=== PATIENT | female | born 1990 | race Two or more races ===

== ENCOUNTER 2024-09-02 08:12 | Emergency (ER) | payer MEDICAID, SELFPAY ==
[2024-09-02 08:22] VITALS: BP 118/71; PULSE 71; RESP 19; TEMP 36.7; O2SAT 98; BMI 24.7
--- NOTE | 2024-09-02 09:01 | XR_ITS ---
Examination: Abdomen sonogram, Limited Date and time of exam: September 02, 2024 10:50 AM INDICATIONS: Epigastric pain beginning May 2024 Technique: Real-time hinton scale transabdominal sonographic images of the upper abdomen obtained. Findings: Multiple gallstones including 8mm gallstone in the gallbladder neck Gallbladder wall 0.3 cm Common bile duct 0.6 cm 40 visualized Pancreatic head 2.6 cm Liver 13.8 cm smooth contour no focal liver lesions Normal hepatopedal portal venous flow Patent IVC IMPRESSION: Cholelithiasis, negative for cholecystitis
--- NOTE | 2024-09-02 09:02 | PD.EDRME ---
Rapid Medical Screening Exam RME Arrival date/time: 09/02/24 08:12 This is a 34-year-old female who presents to the emergency department with complaints of right upper flank abdominal pain radiates to upper abdomen. I have greeted and performed a focused initial assessment of this patient. Initial appropriate labs ordered at this time. A comprehensive ED assessment and evaluation of the patient and analysis of all test and completion of medical decision making process will be conducted by additional ED provider. Chief Complaint: Nausea/Vomiting/Diarrhea Time Seen by Provider: 09/02/24 08:35 Vital signs: Vital Signs Temperature 98.1 F 09/02/24 08:22 Pulse Rate 71 09/02/24 08:22 Respiratory Rate 19 09/02/24 08:22 Blood Pressure 118/71 09/02/24 08:22 Pulse Oximetry (%) 98 09/02/24 08:22 Oxygen Delivery Method Room Air 09/02/24 08:22
[2024-09-02] MEDS: ONDANSETRON ODT 4 MG TABRAP PO (09:14)
[2024-09-02 09:24] LABS: Basophils % (Auto) 0 % (0-2.5); Eosinophils # (Auto) 0.1 Thou/mm3 (0.0-0.5); Eosinophils % (Auto) 1 % (0-10); Hematocrit 39.1 % (36.0-46.0); Hemoglobin 13.5 g/dL (12.0-16.0); Immature Granulocytes % (Auto) 0 % (0-0); Immature Granulocytes Auto 0.04 Thou/mm3 (0.00-0.00); Lymphocytes % (Auto) 18 % (10-50); Mean Corpuscular HGB Conc 34.5 g/dl (31.0-37.0); Mean Corpuscular Hemoglobin 29.5 pg (25.0-35.0); Mean Corpuscular Volume 85 fL (80-100); Monocytes # (Auto) 0.7 Thou/mm3 (0.0-0.8); Monocytes % (Auto) 6 % (0-12); Neutrophils # (Auto) 8.3 Thou/mm3 (1.8-7.7); Neutrophils % (Auto) 74 % (37-80); Nucleated Red Blood Cell % 0 /100 WBC (0); Platelet Count 260 Thou/mm3 (140-440); RDW Standard Deviation 40.9 fL (36.4-46.3); Red Blood Count 4.58 Miln/mm3 (4.00-5.20); White Blood Count 11.2 Thou/mm3 (3.6-11.0)
[2024-09-02 09:44] LABS: Alanine Aminotransferase < 7 U/L (10-49); Albumin, Serum 4.7 gm/dL (3.5-5.0); Albumin/Globulin Ratio 1.6 (1.2-2.2); Alkaline Phosphatase 69 U/L (46-116); Anion Gap 7 (7-16); Aspartate Amino Transferase 13 U/L (0-34); BUN/Creatinine Ratio 10 Ratio (12-20); Bilirubin,Total 0.5 mg/dL (0.3-1.2); Blood Urea Nitrogen 7 mg/dL (9-23); Calcium 9.8 mg/dL (8.3-10.6); Calcium (Corrected) 9.8 mg/dL (8.5-10.1); Carbon Dioxide 26.6 mMol/L (20.0-31.0); Chloride 103 mMol/L (98-107); Creatinine (Component) 0.7 mg/dL (0.6-1.3); Estimated Creatinine Clearance 95.7 mL/min (>60); Glucose 113 mg/dL (74-106); Lipase 38 U/L (12-53); Osmolality,Calculated 272 (275-295); Potassium 4.1 mMol/L (3.4-5.1); Sodium 137 mMol/L (136-145); Total Protein 7.7 gm/dL (5.7-8.2); eGFR > 60 See Note
[2024-09-02 09:50] LABS: Collection Type, Urine Clean Catch
[2024-09-02 09:52] LABS: HCG Qualitative,Urine Negative
[2024-09-02 10:02] LABS: Bilirubin,Urine Negative (Negative); Blood,Urine Negative (Negative); Clarity,Urine Clear (Clear/Hazy); Color,Urine Colorless (Lt Yel-Yel); Glucose, Urine Negative (Negative); Ketones,Urine Negative (Negative); Leukocyte Esterase,Urine Positive (Negative); Nitrite,Urine Negative (Negative); PH,Urine 7.5 (5.0-7.0); Protein,Urine Negative (Neg - Trace); RBC,Urine 1 /hpf (0-3); Specific Gravity,Urine 1.005 (1.001-1.035); Squamous Epithelial Cell,Urine 7 /hpf (0-5); Urobilinogen,Urine Negative mg/dL (0.0-1.0); WBC,Urine 2 /hpf (0-5)
--- NOTE | 2024-09-02 11:55 | PD.EDBACK ---
ED Back Injury Pain RME/HPI General Chief Complaint: Nausea/Vomiting/Diarrhea Stated Complaint: BACK PAIN X1 DAY, CHILLS, N/V, Time Seen by Provider: 09/02/24 08:35 Arrival date/time: 09/02/24 08:12 RME / HPI RME / HPI Narrative: 34-year-old female patient with significant history of gallstone, came in for evaluation regarding right flank pain, has been ongoing for the last 24 hours, associated with chills, nausea, vomiting, and radiation of pain to the right upper quadrant. Described as colicky and crampy, severity moderate. Patient denies any fever. Denies any other complaints. No medications taken prior to arrival. Related Data Previous Rx's ?Medication ?Instructions ?Recorded cyclobenzaprine 10 mg tablet 10 mg PO TID PRN muscle spasm #30 06/06/23 tabs dicyclomine 20 mg tablet 20 mg PO TID PRN abdominal pain 06/06/23 #30 tabs ibuprofen 800 mg tablet 800 mg PO TID PRN pain #30 tabs 06/06/23 dicyclomine 20 mg tablet 20 mg PO TID PRN abdominal pain 09/02/24 #30 tabs ibuprofen 800 mg tablet 800 mg PO TID PRN pain #30 tabs 09/02/24 Allergies Allergy/AdvReac Type Severity Reaction Status Date / Time No Known Allergies Allergy Verified 09/02/24 08:16 Review of Systems Review of Systems Narrative Review of Systems: Review of system reviewed and within normal limits except mentioned in HPI ED Exam Narrative Physical exam: VITAL SIGNS: Reviewed. GENERAL APPEARANCE: Alert and interactive, follows commands, no acute distress, HEAD AND FACE: Non-traumatic. ENT: PERRL, pink conjunctivitis, eyelid no trauma, Mucous membrane moist. NECK: Supple, nontender, no nuchal rigidity. CHEST: No tenderness, no crepitus, no paradoxical movement, no retractions. LUNGS: Clear, well ventilated, symmetric, no rales, no wheezing, no ronchi, no stridor, good breath sounds bilaterally. HEART: Regular rate, regular rhythm, no murmur, no gallops. ABDOMEN: Soft, positive bowel sounds, nondistended, no guarding, right upper quadrant tenderness on palpation, no rebound, no masses,+ right flank pain RECTAL: Deferred. GENITAL: Deferred. NEUROLOGICAL: Gross motor function intact sensory function intact, Appropriate for age. MUSCULOSKELETAL: low back nontender, full range of motion. EXTREMITIES: Nontender, full range of motion. SKIN: Color pink, dry, no rash, no lacerations, no abrasions, no contusions. LYMPHATICS: Deferred. Course Quality Measures none Orders Category Date Time Status US gall bladder Stat Exams 09/02/24 09:01 Completed CBC Stat Lab 09/02/24 09:05 Completed Comprehensive Metabolic Panel Stat Lab 09/02/24 09:05 Completed HCG Qualitative,Urine Stat Lab 09/02/24 09:15 Completed Lipase Stat Lab 09/02/24 09:05 Completed Urinalysis Stat Lab 09/02/24 09:15 Completed Ketorolac Inj [Toradol Inj] Med 09/02/24 11:52 Discontinued 30 mg IM X1 ONE Ondansetron Odt [Zofran Odt] Med 09/02/24 09:00 Discontinued 4 mg PO X1 ONE Vital Signs Vital signs: Vital Signs Temperature 98.1 F 09/02/24 08:22 Pulse Rate 71 09/02/24 08:22 Respiratory Rate 19 09/02/24 08:22 Blood Pressure 118/71 09/02/24 08:22 Pulse Oximetry (%) 98 09/02/24 08:22 Oxygen Delivery Method Room Air 09/02/24 08:22 Back Pain / Injury MDM Narrative MDM Narrative:: 34-year-old female patient with significant history of gallstone, came in for evaluation regarding right flank pain, has been ongoing for the last 24 hours, associated with chills, nausea, vomiting, and radiation of pain to the right upper quadrant. Described as colicky and crampy, severity moderate. Patient denies any fever. Denies any other complaints. No medications taken prior to arrival. Laboratory workup all came back unremarkable. LFTs are normal. Ultrasound of the gallbladder showed cholelithiasis with no sign of cholecystitis. I discussed the finding with the patient, advised her to follow-up closely with PCP and for referral to general surgeon to take care of her gallbladder. Patient told me that she will do it. Prior to discharge patient told me that her pain is totally gone. After patient received Toradol IM Patient data External records reviewed:: None Clinical information provided by:: patient Social determinants that could affect healthcare access:: none Patient has the following chronic illnesses:: Gallstone How is presenting disease/condition affected by chronic disease/condition?: exacerbated by Evaluation data The following diagnostics were reviewed and interpreted by me:: lab results and radiology exam(s) Lab and/or radiology exams considered but not ordered:: None Interpretation Summary: Laboratory workup all came back unremarkable. LFTs are normal. Ultrasound of the gallbladder showed cholelithiasis with no sign of cholecystitis. Medications / Prescriptions Medications or Prescriptions considered but not ordered:: None Medication administrations:: Medication Administration History Discontinued Medications Ketorolac Tromethamine (Ketorolac Inj 60 Mg/2 Ml Vial) 30 mg IM X1 ONE Stop: 09/02/24 11:53 Ondansetron HCl (Ondansetron Odt 4 Mg Tabrap) 4 mg PO X1 ONE; Protocol Stop: 09/02/24 09:01 Last Admin: 09/02/24 09:14 Dose: 4 mg Documented By: BARRY Escalante and Toradol IM Consultations Consultation(s) initiated? (list below): No Diagnosis Differential diagnosis back pain/injury: sciatica, renal colic and other (Gallstone) Most likely diagnosis given after review of the tests above:: Gallstone Admission Indicated Admission indicated?: not indicated Explain why admission is indicated or not indicated:: Stable Admission Request Was there a request for admission?: No Disposition Plan Disposition Plan: Discharge Discharge Attestation Discharge Attestation: The patient was given an opportunity to ask questions and understood the discharge instructions. Discharge instructions specifically effects, indications for sooner follow up or return to the emergency department, and the expected course of current diagnosis. Patient condition: Stable Discharge Plan Plan Patient Disposition: HOME (Self Care) Disposition Comment: Stable Prescriptions/Referrals Prescriptions/Med Rec: New ibuprofen 800 mg tablet 800 mg PO TID PRN (Reason: pain) Qty: 30 0RF dicyclomine 20 mg tablet 20 mg PO TID PRN (Reason: abdominal pain) Qty: 30 0RF No Action dicyclomine 20 mg tablet 20 mg PO TID PRN (Reason: abdominal pain) Qty: 30 0RF ibuprofen 800 mg tablet 800 mg PO TID PRN (Reason: pain) Qty: 30 0RF cyclobenzaprine 10 mg tablet 10 mg PO TID PRN (Reason: muscle spasm) Qty: 30 0RF Referrals: Chung Jalloh MD [Primary Care Provider] - In 1 week Problem List Clinical Impression: Cholelithiasis Patient/Caregiver Discharge Instructions Discharge Activity: activity as tolerated Education Materials: What Are Gallstones, ED Gallstones with Biliary Colic Additional Instructions: Thank you for the opportunity for serving you today. You are stable for discharged . You are advised to: Follow-up with your PCP in 1 to 2 days and asked for referral to general surgeon Please avoid eating fatty, greasy, fried foods Return to ED for worsening of symptoms Increase oral fluids Take medication as prescribed Print Language: Thai Stand Alone Forms: [employer] Award Info., Patient Portal Info Letter PA/PORTAL ADMINISTRATOR Supervising Physician PA/PORTAL ADMINISTRATOR Supervising Physician: MD Suyapa
[2024-09-02] MEDS: KETOROLAC INJ 60 MG/2 ML VIAL 30 MG IM (12:31)
[2024-09-02 12:32] VITALS: BP 124/73; PULSE 66; RESP 17; TEMP 36.9; O2SAT 95
== END 2024-09-02 12:40 | disposition home or self-care (01) ==
PROVIDERS: Nurse Practitioner Primary Care; Emergency Provider Emergency Medicine; PCP Family Medicine
DX: K80.20 Calculus of gallbladder without cholecystitis without obstruction (principal)
CPT/HCPCS: 36415; 76705; 80053; 81001; 81025; 83690; 85025; 96372; 99284; J1885; Q0162

== ENCOUNTER 2025-02-21 08:23 | Emergency (ER) | payer MEDICAID, SELFPAY ==
[2025-02-21 08:23] VITALS: BMI 28.3
[2025-02-21 08:32] VITALS: BP 112/76; PULSE 87; RESP 17; TEMP 36.8; O2SAT 98
--- NOTE | 2025-02-21 08:41 | EKG_ITS ---
[facility] Test Date: 2025-02-21 Pat Name: ROLANDO FITZGERALD Department: Room: - Gender: Female [employer]: : 1990 Requested By: Jackson Terrell Order Number: [id number] Reading MD: Jackson Terrell Measurements Intervals [place] Rate: 75 P: 9 AR: 141 QRS: 61 QRSD: 86 T: 51 QT: 394 QTc: 443 Interpretive Statements SINUS RHYTHM No previous ECG available for comparison /store/S0/[id number]/ecg/[id number].pdf
--- NOTE | 2025-02-21 08:41 | XR_ITS ---
Examination: PA lateral chest 2 views TECHNIQUE: Upright PA lateral chest 2 views Date and time: February 21, 2025 0851 hours INDICATIONS: Chest pain today. FINDINGS: Normal heart size. Lungs are clear. Osseous structures are intact. IMPRESSION: No active disease.
--- NOTE | 2025-02-21 08:42 | EDNOTE_ITS ---
ED General RME/HPI General Chief complaint: General Adult/Misc Complain Stated complaint: BODY ACHES X3 DAYS Source: patient Arrival date/time: 02/21/25 08:23 34-year-old female with no known medical history presents to the emergency room with a chief complaint of body aches x 3 days, left arm tingling, and a near syncopal episode that occurred this morning. Mode of arrival: ambulatory Limitations: no limitations Related Data Previous Rx's ?Medication ?Instructions ?Recorded cyclobenzaprine 10 mg tablet 10 mg PO TID PRN muscle s pasm #30 06/06/23 tabs dicyclomine 20 mg tablet 20 mg PO TID PRN abdominal p ain 06/06/23 #30 tabs ibuprofen 800 mg tablet 800 mg PO TID PRN pain #30 t abs 06/06/23 dicyclomine 20 mg tablet 20 mg PO TID PRN abdominal p ain 09/02/24 #30 tabs ibuprofen 800 mg tablet 800 mg PO TID PRN pain #30 t abs 09/02/24 Allergies Allergy/AdvReac Type Severity Reaction Status Date / Time No Known Allergies Allergy Verified 09/02/24 08:16 Review of Systems Review of Systems Systems Reviewed: All systems reviewed, normal except as documented Constitutional Constitutional: Reports system reviewed and no additional complaints, except as documented, Reports body ache(s), Reports chills, Denies fatigue, Denies fever(s), Denies headache(s) and Denies weakness Eyes Eyes: Reports system reviewed and no additional complaints, except as documented, Denies blurry vision and Denies change in vision ENT Ears, Nose, Mouth, and Throat: Reports system reviewed and no additional complaints, except as documented, Denies otalgia, Denies headache(s), Denies nasal congestion, Denies throat swelling and Denies vertigo Cardiovascular Cardiovascular: Reports system reviewed and no additional complaints, except as documented, Denies chest pain, Denies dyspnea and Denies dyspnea on exertion Respiratory Respiratory: Reports system reviewed and no additional complaints, except as documented, Denies chest congestion, Denies cough, Denies dyspnea, Denies dyspnea on exertion and Denies wheezing Gastrointestinal Gastrointestinal: Reports system reviewed and no additional complaints, except as documented, Denies abdominal pain, Denies cramping, Denies nausea and Denies vomiting Genitourinary Genitourinary: Reports system reviewed and no additional complaints, except as documented Musculoskeletal Musculoskeletal: Reports system reviewed and no additional complaints, except as documented and Denies back pain Integumentary/Breasts Skin/Breast: Reports system reviewed and no additional complaints, except as documented and Denies wounds Neurologic Neurologic: Reports system reviewed and no additional complaints, except as documented, Denies confusion, Denies headache(s), Denies lack of coordination, Denies vertigo and Denies weakness Psychiatric Psychiatric: Reports system reviewed and no additional complaints, except as documented, Denies anxiety, Denies confusion, Denies depression, Denies paranoia, Denies suicidal ideation and Denies tactile hallucinations Endocrine Endocrine: Reports system reviewed and no additional complaints, except as documented and Denies fatigue Hematologic/Lymphatic Hematologic/Lymphatic: Reports system reviewed and no additional complaints, except as documented and Denies lymphadenopathy Allergic/Immunologic Allergic/Immunologic: Reports system reviewed and no additional complaints, except as documented, Denies throat swelling, Denies urticaria and Denies wheezing Past Medical History Past Medical History NEUROLOGIC: Negative Neurological Disorders or Seizures CARDIAC: Negative Cardiac Disorders or Congestive Heart Failure RESPIRATORY: Negative Chronic Obstructive Pulmonary Disease (COPD) GASTROINTESTINAL: Negative Gastrointestinal Disorders GENITOURINARY: Positive Genitourinary Disorders (peylonephritis, UTIs); Negative Renal Disease REPRODUCTIVE: Positive Previous Pregnancies (x9 including 4 SABs) MUSCULOSKELETAL: Negative Musculoskeletal Disorders ENDOCRINE: Negative Endocrine Disorders, Diabetes Mellitus Type 1 or Diabetes Mellitus Type 2 HEMATOLOGIC: Negative Blood Disorders OTHER HISTORY: Positive Hospitalization (childbirth); Negative Autoimmune Disease, Blood Transfusions, Blood Transfusion Reaction or Anesthesia Reactions Family History FAMILY HISTORY: Positive Family Cardiac Disorders (mother-HTN and stroke) and Family Cancer (paternal uncle-colon cancer, paternal aunt-breast cancer); Negative Family Psychiatric Problems, Family Respiratory Disorders, Family Gastrointestinal Problems, Family Surgery or Family Anesthesia Reaction Surgical History SURGICAL: Positive Tonsillectomy (at age 3); Negative Section Social History SMOKING STATUS: Former smoker SECOND HAND EXPOSURE: No ED Exam General Limitations: Present no limitations General appearance: Present alert and in no apparent distress Head Head exam: Present atraumatic Eye Eye exam: Present normal appearance, PERRL and EOMI ENT ENT exam: Present normal exam, normal oropharynx and mucous membranes moist Neck Neck exam: Present normal inspection, full ROM and trachea midline Chest Chest inspection: Present normal inspection and symmetric chest wall rise Respiratory Respiratory exam: Present normal lung sounds bilaterally; Absent respiratory distress, wheezes, stridor, accessory muscle use or prolonged expiratory phase Cardiovascular Cardiovascular exam: Present regular rate, normal rhythm, normal heart sounds, +S1 and +S2; Absent bradycardia, tachycardia or irregular rhythm Abdominal Exam Abdominal exam: Present soft and normal bowel sounds; Absent tenderness Extremities Exam Extremities exam: Present normal inspection and full ROM Back Exam Back exam: Present normal inspection and full ROM Neurological Exam Neurological exam: Present alert, oriented X3 and CN II-XII intact Psychiatric Psychiatric exam: Present normal affect and normal mood Skin Skin exam: Present warm, dry, intact and normal color Course Quality Measures none Orders Category Date Time Status Bedside COVID-19 Antigen Test NOW Care 02/21/25 08:42 Active Bedside Influenza A&B Antigen Test NOW Care 02/21/25 08:42 Completed EKG (ED ONLY) *Do not use* NOW Care 02/21/25 08:41 Completed EKG (ED Only) Stat Exams 02/21/25 08:41 Draft XR chest 2V Stat Exams 02/21/25 08:41 Completed B-Type Natriuretic Peptide Stat Lab 02/21/25 09:06 Completed CBC Stat Lab 02/21/25 09:06 Completed Comprehensive Metabolic Panel Stat Lab 02/21/25 09:06 Completed Troponin I Stat Lab 02/21/25 09:06 Completed Urinalysis Stat Lab 02/21/25 09:58 Received Vital Signs Vital signs: Vital Signs Temperature 98.2 F 02/21/25 08:32 Pulse Rate 87 02/21/25 08:32 Respiratory Rate 17 02/21/25 08:32 Blood Pressure 112/76 02/21/25 08:32 Pulse Oximetry (%) 98 02/21/25 08:32 Oxygen Delivery Method Room Air 02/21/25 08:32 O2 saturation 98% within normal limits Procedures -ED EKG Interpretation #1: Date of EK02/21/25 Rate: 73 Interpretation: Reviewed by me EKG Impression: Normal sinus rhythm Discharge Plan Plan Patient Disposition: HOME (Self Care) Discharge Disposition comment: Stable Prescriptions/Referrals Prescriptions/Med Rec: No Action dicyclomine 20 mg tablet 20 mg PO TID PRN (Reason: abdominal pain) Qty: 30 0RF ibuprofen 800 mg tablet 800 mg PO TID PRN (Reason: pain) Qty: 30 0RF cyclobenzaprine 10 mg tablet 10 mg PO TID PRN (Reason: muscle spasm) Qty: 30 0RF ibuprofen 800 mg tablet 800 mg PO TID PRN (Reason: pain) Qty: 30 0RF dicyclomine 20 mg tablet 20 mg PO TID PRN (Reason: abdominal pain) Qty: 30 0RF Referrals: Chung Jalloh MD [Primary Care Provider] - In 1 week Problem List Clinical Impression: Upper respiratory infection Patient/Caregiver Discharge Instructions Education Materials: ED URI, Viral, No Abx (Adult) Additional Instructions: Please follow-up with your primary care provider in the next 24 to 48 hours Your chest x-ray was negative for any pneumonia. Your blood work and EKG were negative for any acute cardiac emergency Your COVID-19 and influenza test were both negative. Your most probable source is a viral upper respiratory infection. For any evidence of worsening signs or symptoms return to the emergency room immediately Print Language: Vietnamese Stand Alone Forms: [employer] Award Info., Work/School Release, Patient Portal Info Letter PA/WOOD AND HARDWARE OUTFITTER Supervising Physician PA/WOOD AND HARDWARE OUTFITTER Supervising Physician: Dr. Live [facility] Narrative [facility] hospital course: 34-year-old female with no known medical history presents to the emergency room with a chief complaint of body aches x 3 days, left arm tingling, and a near syncopal episode that occurred this morning. Patient is hemodynamically stable and in no apparent distress. She is afebrile not tachycardic not tachypneic. Physical examination shows clear bilateral lung sounds with no wheezing stridor or any abnormal breath sounds. Patient has a strong and regular rhythm S1 and S 2 noted EKG shows normal sinus rhythm at [address] deviation. CBC CMP is within normal limits. Chest x-ray was negative for any pneumonic infiltrates. COVID-19 influenza test were both negative Patient was discharged and educated to follow-up with primary care provider in the next 24 to 48 hours and return to the emergency room for any evidence of worsening signs or symptoms Clinical Information Provided by patient Medical Records Reviewed None Meds/Rx Considered, not Ordered None Labs/Rad/Tests considered, not Ordered None Chronic Illness/Social Conditions which may negatively complicate care or outcome(s)-explain: None or not applicable EKG EKG Interpretation narrative: EKG shows normal sinus rhythm at [address] deviation Lab Interpretation Labs: interpreted by me Imaging Imaging interpretation: interpreted by me Provider imaging interpretation(s): Chest x-ray negative for any pneumonic infiltrate Medication Administration(s) none Diagnosis Differential diagnosis: Upper respiratory infection/community-acquired pneumonia/STEMI/costochondri Differential dx and/or dx ruled out: STEMI/community-acquired pneumonia/costochondritis Most likely dx, and/or detailed dx discussion: Upper respiratory infection Dispositon Disposition: Discharge Home
[2025-02-21 09:23] LABS: Basophils % (Auto) 1 % (0-2.5); Eosinophils # (Auto) 0.2 Thou/mm3 (0.0-0.5); Eosinophils % (Auto) 3 % (0-10); Hemoglobin 12.5 g/dL (12.0-16.0); Immature Granulocytes % (Auto) 1 % (0-0); Immature Granulocytes Auto 0.07 Thou/mm3 (0.00-0.00); Lymphocytes # (Auto) 1.2 Thou/mm3 (1.0-4.8); Lymphocytes % (Auto) 18 % (10-50); Mean Corpuscular HGB Conc 35.7 g/dl (31.0-37.0); Mean Corpuscular Hemoglobin 29.6 pg (25.0-35.0); Mean Corpuscular Volume 83 fL (80-100); Monocytes # (Auto) 0.5 Thou/mm3 (0.0-0.8); Monocytes % (Auto) 7 % (0-12); Neutrophils # (Auto) 4.6 Thou/mm3 (1.8-7.7); Neutrophils % (Auto) 71 % (37-80); Nucleated Red Blood Cell % 0 /100 WBC (0); Platelet Count 328 Thou/mm3 (140-440); RDW Standard Deviation 37.4 fL (36.4-46.3); Red Blood Count 4.23 Miln/mm3 (4.00-5.20); White Blood Count 6.5 Thou/mm3 (3.6-11.0)
[2025-02-21 09:32] LABS: Alanine Aminotransferase 14 U/L (10-49); Albumin, Serum 4.4 gm/dL (3.5-5.0); Albumin/Globulin Ratio 1.6 (1.2-2.2); Alkaline Phosphatase 62 U/L (46-116); Anion Gap 9 (7-16); BUN/Creatinine Ratio 14 Ratio (12-20); Bilirubin,Total 0.5 mg/dL (0.3-1.2); Blood Urea Nitrogen 10 mg/dL (9-23); Calcium 9.6 mg/dL (8.3-10.6); Calcium (Corrected) 9.6 mg/dL (8.5-10.1); Carbon Dioxide 27.4 mMol/L (20.0-31.0); Chloride 104 mMol/L (98-107); Creatinine (Component) 0.7 mg/dL (0.6-1.3); Estimated Creatinine Clearance 102.1 mL/min (>60); Globulin 2.8 gm/dL (2.3-3.5); Glucose 113 mg/dL (74-106); Osmolality,Calculated 279 (275-295); Potassium 3.2 mMol/L (3.4-5.1); Sodium 140 mMol/L (136-145); Total Protein 7.2 gm/dL (5.7-8.2); Troponin I < 0.002 ng/mL (0.0-0.045); eGFR > 60 See Note
[2025-02-21 09:50] LABS: B-Type Natriuretic Peptide < 20 pg/mL (0-100)
[2025-02-21 10:04] LABS: Collection Type, Urine Clean Catch
[2025-02-21 10:25] LABS: Bilirubin,Urine Negative (Negative); Blood,Urine Trace (Negative); Clarity,Urine Turbid (Clear/Hazy); Color,Urine Yellow (Lt Yel-Yel); Glucose, Urine Negative (Negative); Ketones,Urine Trace (Negative); Leukocyte Esterase,Urine Negative (Negative); Nitrite,Urine Negative (Negative); Protein,Urine 1+ (Neg - Trace); RBC,Urine 8 /hpf (0-3); Specific Gravity,Urine 1.027 (1.001-1.035); Squamous Epithelial Cell,Urine 22 /hpf (0-5); Urobilinogen,Urine Negative mg/dL (0.0-1.0); WBC,Urine 6 /hpf (0-5)
== END 2025-02-21 10:49 | disposition home or self-care (01) ==
PROVIDERS: Nurse Practitioner Family; Emergency Provider Family Medicine; PCP Family Medicine
DX: J06.9 Acute upper respiratory infection, unspecified (principal); R07.9 Chest pain, unspecified; R55 Syncope and collapse; Z87.891 Personal history of nicotine dependence
CPT/HCPCS: 36415; 71046; 80053; 81001; 83880; 84484; 85025; 87400; 87811; 93005; 99283